=== PATIENT | male | born 1970 | race Two or more races ===

== ENCOUNTER 2018-01-14 20:02 | Inpatient (IN) | payer BC ==
[~2018-01-14] VITALS: Ht 167.6 cm; Wt 91.2 kg
[2018-01-14] MEDS ORDERED: PLEASE ENTER HEIGHT AND WEIGHT MC SCH (20:30)
[2018-01-14] MEDS ORDERED: ASPIRIN 81 MG TABLET CHEW PO ONE (20:30)
[2018-01-14] MEDS ORDERED: PLEASE ENTER ALLERGIES MC SCH (20:30)
[2018-01-14 20:31] LABS: BASOPHILS # (AUTO) 0.06 x10^3/uL (0-0.1); BASOPHILS % (AUTO) 1 % (0-1); EOSINOPHILS # (AUTO) 0.55 x10^3/uL (0-0.4); EOSINOPHILS % (AUTO) 6 % (1-7); LYMPHOCYTES # (AUTO) 3.49 x10^3/uL (1-3.4); LYMPHOCYTES % (AUTO) 35 % (22-44); MD NO; MEAN CORPUSCULAR HEMOGLOBIN 30.5 pg (27.5-34.5); MEAN CORPUSCULAR HGB CONC 34.1 g/dL (33.2-36.2); MEAN CORPUSCULAR VOLUME 89.3 fL (81-97); MONOCYTES # (AUTO) 0.77 x10^3/uL (0.2-0.8); MONOCYTES % (AUTO) 8 % (2-9); NEUTROPHILS # (AUTO) 5.18 x10^3/uL (1.8-6.8); NEUTROPHILS % (AUTO) 52 % (42-75); PLATELET COUNT 275 x10^3/uL (130-400); RED BLOOD COUNT 4.84 x10^6/uL (4.38-5.82); RED CELL DISTRIBUTION WIDTH 13.9 % (9.4-14.8)
[2018-01-14 20:42] LABS: ALANINE AMINOTRANSFERASE 52 U/L (12-78); ALBUMIN 4.1 g/dL (3.4-5.0); ANION GAP 8 mmol/L (5-15); CALCIUM 8.6 mg/dL (8.5-10.1); CHLORIDE 106 mmol/L (98-107)
[2018-01-14 20:46] LABS: ALKALINE PHOSPHATASE 92 U/L (45-117); BILIRUBIN,TOTAL 0.3 mg/dL (0.2-1.0); TOTAL PROTEIN 8.6 g/dL (6.4-8.2); TROPONIN I 0.104 ng/mL (0.000-0.045)
[2018-01-14] MEDS ORDERED: ASPIRIN 81 MG TABLET CHEW ONE (21:31)
[2018-01-14] MEDS ORDERED: ATOR20TA9 PO (22:26)
[2018-01-14] MEDS ORDERED: IRBE300T16 PO (22:26)
[2018-01-14] MEDS ORDERED: AMLO5TAB7 PO (22:26)
[2018-01-14] MEDS ORDERED: CETI10TA18 PO (22:26)
[2018-01-14] MEDS ORDERED: HEPARIN 25,000 UNITS/500ML PMX 500 ML IV PRN (22:30)
[2018-01-14] MEDS ORDERED: HEPARIN 5,000 UNITS/ML, 1ML IV ONE (22:30)
[2018-01-14 23:13] VITALS: BP 137/89
[2018-01-15] MEDS ORDERED: POLYETHYLENE GLYCOL 17 GM PACKET PO PRN (01:00)
[2018-01-15] MEDS ORDERED: ONDANSETRON 2MG/ML, 2ML IVPush PRN (01:00)
[2018-01-15] MEDS ORDERED: LABETALOL 5MG/ML, 20ML IVPush PRN (01:00)
[2018-01-15] MEDS ORDERED: ATORVASTATIN 20 MG TABLET PO SCH (01:00)
[2018-01-15] MEDS ORDERED: BISACODYL 10 MG SUPP PR PRN (01:00)
[2018-01-15] MEDS ORDERED: morphine SULFATE 10 MG/ML, 1ML IVPush PRN (01:00)
[2018-01-15] MEDS ORDERED: ENOXAPARIN 40 MG/0.4 ML SQ SCH (01:00)
[2018-01-15] MEDS ORDERED: ACETAMINOPHEN 325 MG TABLET PO PRN (01:00)
[2018-01-15] MEDS ORDERED: hydrALAzine 20 MG/ML, 1ML IVPush PRN (01:00)
[2018-01-15] MEDS ORDERED: DOCUSATE 100 MG CAPSULE PO PRN (01:00)
[2018-01-15] MEDS ORDERED: OXYcodone IR 5MG TABLET PO PRN (01:00)
[2018-01-15] MEDS ORDERED: PROMETHAZINE 25 MG/ML, 1ML IM PRN (01:00)
[2018-01-15] MEDS ORDERED: ONDANSETRON ODT 4 MG PO PRN (01:00)
[2018-01-15] MEDS ORDERED: NITROGLYCERIN 0.4 MG BOTTLE (25 TABS) SL PRN (01:00)
[2018-01-15] MEDS ORDERED: GABAPENTIN 300 MG CAPSULE PO PRN (01:00)
[2018-01-15] MEDS: CARVEDILOL 6.25 MG TABLET PO SCH ×2 (01:08→05:35)
[2018-01-15 01:14] VITALS: BP 131/81
[2018-01-15] MEDS ORDERED: HYDROCHLOROTHIAZIDE 12.5 MG CAPSULE PO SCH (01:30)
[2018-01-15 02:06] LABS: HEMOGLOBIN A1C 6.2 % (4.2-6.3)
[2018-01-15 02:09] LABS: FREE T4 (FREE THYROXINE) 1.05 ng/dL (0.76-1.46); THYROID STIMULATING HORMONE 1.75 mIU/L (0.358-3.740)
[2018-01-15 05:33] VITALS: BP 119/81
[2018-01-15] MEDS ORDERED: ASPIRIN 325 MG TABLET EC PO SCH (06:00)
[2018-01-15 06:01] LABS: BASOPHILS # (AUTO) 0.11 x10^3/uL (0-0.1); BASOPHILS % (AUTO) 2 % (0-1); EOSINOPHILS # (AUTO) 0.43 x10^3/uL (0-0.4); EOSINOPHILS % (AUTO) 6 % (1-7); LYMPHOCYTES # (AUTO) 2.48 x10^3/uL (1-3.4); LYMPHOCYTES % (AUTO) 34 % (22-44); MD NO; MEAN CORPUSCULAR HEMOGLOBIN 30.4 pg (27.5-34.5); MEAN CORPUSCULAR HGB CONC 34.1 g/dL (33.2-36.2); MEAN CORPUSCULAR VOLUME 89.1 fL (81-97); MEAN PLATELET VOLUME 9.8 fL (7.4-10.4); MONOCYTES # (AUTO) 0.71 x10^3/uL (0.2-0.8); MONOCYTES % (AUTO) 10 % (2-9); NEUTROPHILS # (AUTO) 3.49 x10^3/uL (1.8-6.8); NEUTROPHILS % (AUTO) 48 % (42-75); PLATELET COUNT 243 x10^3/uL (130-400); RED BLOOD COUNT 4.63 x10^6/uL (4.38-5.82); RED CELL DISTRIBUTION WIDTH 13.9 % (9.4-14.8)
[2018-01-15 06:11] LABS: ALBUMIN 3.6 g/dL (3.4-5.0); ANION GAP 10 mmol/L (5-15); CALCIUM 8.3 mg/dL (8.5-10.1); CHLORIDE 107 mmol/L (98-107)
[2018-01-15 06:14] LABS: ALANINE AMINOTRANSFERASE 45 U/L (12-78); ALKALINE PHOSPHATASE 71 U/L (45-117); BILIRUBIN,TOTAL 0.6 mg/dL (0.2-1.0); CHOL/HDL RATIO 4.3; CHOLESTEROL, TOTAL 137 mg/dL (140-239); HDL CHOL % 23 % (26-37); HDL CHOLESTEROL (DIRECT) 32 mg/dL (40-60); LDL CHOLESTEROL,CALCULATED 77 mg/dL (54-169); LDL/HDL RATIO 2.4 (0.5-3.0); TOTAL PROTEIN 7.5 g/dL (6.4-8.2); TRIGLYCERIDES 138 mg/dL (50-200); VLDL CHOLESTEROL 28 mg/dL (0-25)
[2018-01-15 06:58] VITALS: BP 136/79
[2018-01-15 08:55] LABS: TROPONIN I 0.094 ng/mL (0.000-0.045)
[2018-01-15] MEDS ORDERED: CETIRIZINE 10 MG TABLET PO SCH (09:00)
[2018-01-15] MEDS ORDERED: IRBESARTAN 300 MG TABLET PO SCH (09:00)
[2018-01-15] MEDS ORDERED: AMLODIPINE 5 MG TABLET PO SCH (09:00)
[2018-01-15 14:00] VITALS: BP 130/90
[2018-01-15] MEDS ORDERED: ASPI-621 PO (15:27)
[2018-01-15] MEDS ORDERED: AMLO5TAB7 PO (15:27)
[2018-01-15] MEDS ORDERED: CARV6.2512 PO (15:27)
[2018-01-15] MEDS ORDERED: IRBE300T16 PO (15:27)
[2018-01-15] MEDS ORDERED: ATOR20TA9 PO (15:27)
== END 2018-01-15 16:40 | disposition home or self-care (01) | DRG 282 ==
LOC: ED 21:16 → EDIP 21:38 → 5SO 22:38 → DCLOUNGE 01-15 16:15
PROVIDERS: ADMIT Internal Medicine; ATTEND Internal Medicine
DX: I21.4 Non-ST elevation (NSTEMI) myocardial infarction (principal); D72.829 Elevated white blood cell count, unspecified; I11.9 Hypertensive heart disease without heart failure; I16.0 Hypertensive urgency; E78.5 Hyperlipidemia, unspecified; Z91.14 Patient's other noncompliance with medication regimen; Z91.19 Patient's noncompliance with other medical treatment and regimen; Z79.899 Other long term (current) drug therapy; Z79.82 Long term (current) use of aspirin; Z82.49 Family history of ischemic heart disease and other diseases of the circulatory system
CPT/HCPCS: 36415; 71045; 78452; 80053; 80061; 83036; 83735; 84439; 84443; 84484; 85025; 85520; 93005; 93017; 93306; 96374; G0378; J1644; J1650; A9502; C9898

== ENCOUNTER 2019-06-03 18:42 | Emergency (ER) | payer BC ==
[~2019-06-03] VITALS: Ht 167.6 cm; Wt 95.2 kg
[~2019-06-03 18:42] MED LIST: AMLO-150 PO; ASPI81TA45 PO; ATOR20TA37 PO; CARV6.2512 PO; CETI10TA18 PO; IRBE300T8 PO
--- NOTE | 2019-06-03 19:11 | NUR ---
1ST CONTACT C PT. RESTING ON CART IN NAD. STATES OUT OF HTN RX C 2DAYS. RX HAS & NO PCP & NO APTS AVAIL FOR 3 MONTHS. T HAD H/A3 DAYS AGO. AT BS.
[2019-06-03] MEDS ORDERED: AMLODIPINE 10 MG TAB PO ONE (19:30)
[2019-06-03] MEDS ORDERED: AMLODIPINE 5 MG TABLET PO ONE ×2 (19:30)
[2019-06-03] MEDS ORDERED: CARVEDILOL 12.5 MG TABLET PO ONE (19:30)
[2019-06-03] MEDS ORDERED: AMLODIPINE 5 MG TABLET ONE (19:32)
[2019-06-03] MEDS ORDERED: CARVEDILOL 3.125 MG TABLET ONE (19:32)
[2019-06-03 19:55] VITALS: BP 141/105
== END 2019-06-03 20:08 | disposition home or self-care (01) ==
LOC: ED 19:42
DX: I10 Essential (primary) hypertension (principal); E78.5 Hyperlipidemia, unspecified
CPT/HCPCS: 99283

== ENCOUNTER 2019-09-11 23:24 | Emergency (ER) | payer BC, OTHER ==
[~2019-09-11] VITALS: Ht 167.6 cm; Wt 92.0 kg
[2019-09-11 23:26] VITALS: BP 139/83
== END 2019-09-12 00:23 | disposition home or self-care (01) ==
LOC: ED 09-12 00:10
DX: Z03.818 Encounter for observation for suspected exposure to other biological agents ruled out (principal); R51 Headache; I10 Essential (primary) hypertension; E78.5 Hyperlipidemia, unspecified
CPT/HCPCS: 36415; 87635; 99283